=== PATIENT | female | born 1995 | race American Indian/Alaskan Native ===

== ENCOUNTER 2021-02-23 18:38 | Emergency (ER) | payer OTHER ==
[2021-02-23] MEDS ORDERED: TETANUS,DIPH,PERTUSS(ACELL) VACCINE 0.5 ML SYRINGE IM ONE (20:39)
[2021-02-23] MEDS ORDERED: IBUPROFEN 600 MG TAB PO ONE (20:39)
[2021-02-23] MEDS ORDERED: LIDOCAINE (1%) 10 MG/1 ML VIAL 20 ML MDV INFILTRATI ONE (20:39)
[2021-02-23] MEDS ORDERED: ACETAMINOPHEN 500 MG TAB PO ONE (20:39)
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
--- NOTE | 2021-02-23 21:10 | XRay Report ---
Right hand and wrist radiographs. HISTORY: Trauma COMPARISON: None FINDINGS: There is bandage material about the right ring digit. No soft tissue foreign body identifie d. There is no acute fracture or malalignment of the right hand or wrist. IMPRESSION: No acute abnormality of the right hand or wrist. Left hand radiograph, 3 views. HISTORY: Trauma COMPARISON: None FINDINGS: No acute fracture, alignment, or soft tissue abnormality of the left hand. No radiopaque fo reign body. IMPRESSION: Negative left hand. Signer Name: Freddie Goldman MD Signed: 02/23/2021 9:06 PM Workstation Name: [id number]
[2021-02-23 22:43] VITALS: BP 121/67
[2021-02-23] MEDS ORDERED: NEOMY 3.5 MG/BACIT 400 UNITS/POLY B 5000 UNITS/GM OINT PACKET TP ONE ×2 (23:04)
== END 2021-02-23 23:53 | disposition home or self-care (01) ==
LOC: ED 18:38
DX: S61.511A Laceration without foreign body of right wrist, initial encounter (principal); S61.210A Laceration without foreign body of right index finger without damage to nail, initial encounter; S60.222A Contusion of left hand, initial encounter; S60.221A Contusion of right hand, initial encounter; S61.532A Puncture wound without foreign body of left wrist, initial encounter; S81.832A Puncture wound without foreign body, left lower leg, initial encounter; S81.831A Puncture wound without foreign body, right lower leg, initial encounter; S61.237A Puncture wound without foreign body of left little finger without damage to nail, initial encounter; Z79.899 Other long term (current) drug therapy; W25.XXXA Contact with sharp glass, initial encounter; Y93.89 Activity, other specified; Y92.89 Other specified places as the place of occurrence of the external cause; Y99.8 Other external cause status
CPT/HCPCS: 12032; 12041; 73110; 73120; 90471; 90715; 99283; A6250